=== PATIENT | male | born 1950 | race Caucasian/White ===

== ENCOUNTER 2019-11-10 17:10 | Emergency (ER) | payer OTHER, BC ==
--- NOTE | 2019-11-10 17:29 | PDOC ---
History of Present Illness - General Chief Complaint: Laceration Stated Complaint: LACERATION Time Seen by Provider: 11/10/19 17:17 History Source: Patient - History of Present Illness Timing/Duration: reports: just prior to arrival Location: reports: hands Past History - Past Medical History Allergies/Adverse Reactions: Allergies Allergy/AdvReac Type Severity Reaction Status Date / Time No Known Allergies Allergy Verified 11/10/19 17:12 Home Medications: Ambulatory Orders Desmopressin Acetate 1 tab PO ASDIR 11/10/19 Nebivolol [Bystolic -] 5 mg PO DAILY 11/10/19 Pantoprazole Sodium [Protonix -] 40 mg PO DAILY 11/10/19 Ramipril 5 mg PO DAILY 11/10/19 Semaglutide [Ozempic] 2 mg IJ MONTHLY 11/10/19 Simvastatin 10 mg PO HS 11/10/19 Warfarin Na [Coumadin] 4 mg PO DAILY 11/10/19 - Psycho Social/Smoking Cessation Hx Smoking History: Never smoked Review of Systems - Review of Systems Neurological: No: Numbness, Tingling *Physical Exam - Vital Signs Last Vital Signs Temp Pulse Resp BP Pulse Ox 97.8 F 60 18 154/78 98 11/10/19 17:14 11/10/19 17:14 11/10/19 17:14 11/10/19 17:14 11/10/19 17:14 - Physical Exam General Appearance: Yes: Appropriately Dressed. No: Apparent Distress HEENT: positive: Normal Voice Neck: positive: Supple Respiratory/Chest: negative: Respiratory Distress Integumentary: positive: Dry, Warm, Other (~1.5 cm lac to distal phalanx of volar L thumb, no gross tendon injury, active and passive ROM intact, sensation intact) Neurologic: positive: Fully Oriented, Alert, Normal Mood/Affect, Motor Strength 5/5 Procedures - Laceration/Wound Repair Left Finger Wound Length: to 2.5 cm Irrigated w/ Saline: Yes Betadine Prep: Yes Anesthesia: 1% Lidocaine Amount of Anesthetic (ccs): 6 Wound Repaired With: Sutures Suture Size/Type: 5:0, 4:0, nylon Number of Sutures: 21 (2, 4:0 nylon and 19, 5:0 nylon) Medical Decision Making - Medical Decision Making 11/10/19 17:18 69 yo male, history of unprovoked DVT/PE, on lifelong Coumadin presents with left thumb laceration after handling a table saw today. Denies any sensory changes. Tetanus up-to-date with the last 5 years see exam Finger lac No e/o complications at this time No significant bleeding (on coumadin) XR neg for fracture S/p suture repair Tetanus up-to-date Dc to return as needed for wound check in 2 days 11/10/19 18:21 Discharge - Discharge Information Problems reviewed: Yes Clinical Impression/Diagnosis: Finger laceration Qualifiers: Encounter type: initial encounter Finger: thumb Damage to nail status: without damage Foreign body presence: without foreign body Laterality: left Qualified Code(s): S61.012A - Laceration without foreign body of left thumb without damage to nail, initial encounter Condition: Good Disposition: HOME - Follow up/Referral - Patient Discharge Instructions Patient Printed Discharge Instructions: DI for Laceration Repair Additional Instructions: Keep dressing in place for at least 24 hours after which one can be opened to air. You can gently cleaned wound with mild soap and water after 24 hours to prevent crusting over the suture knots. You can also apply an antibiotic ointment twice a day until sutures are removed. Return for redness, discharge or fever Sutures are removed in 7 days Xray was negative for fracture - Post Discharge Activity
[2019-11-10 17:36] VITALS: BP 154/78; PULSE 60; TEMP 97.8; BMI 32.6
== END 2019-11-10 18:15 | disposition home or self-care (01) ==
LOC: JER 17:10
PROC: 0HQGXZZ Repair Left Hand Skin, External Approach (ICD-10-PCS; principal; 2019-11-10)
DX: S61.012A Laceration without foreign body of left thumb without damage to nail, initial encounter (principal); W29.8XXA Contact with other powered hand tools and household machinery, initial encounter; Y93.89 Activity, other specified; Y92.018 Other place in single-family (private) house as the place of occurrence of the external cause; Y99.8 Other external cause status; Z86.711 Personal history of pulmonary embolism; Z86.718 Personal history of other venous thrombosis and embolism; Z79.01 Long term (current) use of anticoagulants
CPT/HCPCS: 12001-25; 73140-TC-LT-FY; 99283-25

== ENCOUNTER 2022-04-25 23:27 | Observation (INO) | payer OTHER, BC ==
[2022-04-26] MEDS ORDERED: SODIUM CHLORIDE 0.9% 500 ML INFUS.BAG IV ONE
[2022-04-26] MEDS ORDERED: LIDOCAINE 5% TOPICAL PATCH TP ONE
[2022-04-26] MEDS ORDERED: LIDOCAINE 5% TOPICAL PATCH ONE (00:03)
[2022-04-26] MEDS ORDERED: morphine SULFATE 4 MG/ML VIAL ONE ×2 (00:03→01:17)
[2022-04-26 00:29] LABS: EOS % 3.5 % (0-4.5); HEMATOCRIT 49.7 % (35.4-49); HEMOGLOBIN 16.6 GM/dL (11.7-16.9); LYMPH % 35.3 % (8-40); MCHC 33.4 g/dl (32.0-35.9); MEAN CELL VOLUME 89.9 fl (80-96); MEAN PLT VOLUME 6.5 fl (7.5-11.1); MONO % 10.6 % (3.8-10.2); NEUT % 49.6 % (42.8-82.8); PLATELET COUNT 153 10^3/uL (134-434); RBC 5.52 M/mm3 (4.00-5.60); RDW 14.8 % (11.9-15.9)
[2022-04-26 00:40] LABS: PROTHROMBIN TIME (PATIENT) 34.9 SEC (9.7-13.0)
[2022-04-26 00:43] LABS: ACTIVATED PTT 45.5 SECONDS (25.2-36.5)
[2022-04-26 00:49] LABS: BLOOD UREA NITROGEN 33.1 mg/dL (7-18); CALCIUM 8.9 mg/dL (8.5-10.1)
[2022-04-26 00:53] LABS: CREATININE 1.6 mg/dL (0.55-1.3)
[2022-04-26 00:54] LABS: BILIRUBIN,TOTAL 0.4 mg/dL (0.2-1); TOT PROT 7.4 g/dl (6.4-8.2)
[2022-04-26] MEDS ORDERED: morphine CARPU-JECT 4 MG/1 ML DISP.SYRIN IVPUSH ONE ×2 (01:15)
[2022-04-26 02:58] LABS: PH,URINE 5.5 (5.0-8.0); URINE APPEARANCE CLEAR; URINE BILIRUBIN NEGATIVE (NEGATIVE); URINE COLOR YELLOW; URINE GLUCOSE (UA) NEGATIVE (NEGATIVE); URINE KETONE NEGATIVE (NEGATIVE); URINE LEUK ESTERASE NEGATIVE (NEGATIVE); URINE NITRITE NEGATIVE (NEGATIVE); URINE PROTEIN NEGATIVE (NEGATIVE); URINE UROBILINOGEN 0.2 mg/dL (0.2-1.0)
[2022-04-26] MEDS ORDERED: METHOCARBAMOL 500 MG TABLET PO ONE (04:39)
[2022-04-26] MEDS ORDERED: METHOCARBAMOL 500 MG TABLET ONE (05:17)
[2022-04-26] MEDS ORDERED: SODIUM CHLORIDE 1,000 ML IV STA (08:26)
[2022-04-26] MEDS ORDERED: SODIUM CHLORIDE 500 ML IV STA (08:39)
[2022-04-26] MEDS ORDERED: NEBIVOLOL 5 MG TABLET (FP) PO SCH (10:00)
[2022-04-26] MEDS: INSULIN SLIDING SCALE (NOVOLOG) 1 VIAL SQ SCH ×2 (11:21→17:19)
[2022-04-26 11:39] VITALS: BMI 35.3
[2022-04-26 15:54] VITALS: BP 128/80; PULSE 80; RESP 18; TEMP 97.7
[2022-04-26 17:13] LABS: CALCIUM 8.2 mg/dL (8.5-10.1)
[2022-04-26 17:14] LABS: BLOOD UREA NITROGEN 21.4 mg/dL (7-18)
[2022-04-26 17:18] LABS: ALBUMIN 3.6 g/dl (3.4-5.0); BILIRUBIN,TOTAL 0.4 mg/dL (0.2-1)
[2022-04-26 17:28] LABS: TOT PROT 6.6 g/dl (6.4-8.2)
[2022-04-26] MEDS ORDERED: WARFARIN NA 3 MG TABLET PO SCH (18:00)
[2022-04-26] MEDS ORDERED: WARFARIN NA 2 MG TABLET PO SCH (18:00)
[2022-04-26] MEDS ORDERED: LIDOCAINE PATCH REMOVAL MC SCH (22:00)
== END 2022-04-26 16:20 | disposition home or self-care (01) ==
LOC: JER 23:27 → INTOOBSV 04-26 05:28 → JERBED 04-26 05:28 → UNDOADMOB 04-26 05:28 → JERBED 04-26 08:29 → J8W 04-26 09:42
PROVIDERS: ADMIT Internal Medicine; ATTEND Internal Medicine
PROC: 3E033NZ Introduction of Analgesics, Hypnotics, Sedatives into Peripheral Vein, Percutaneous Approach (ICD-10-PCS; principal; 2022-04-26)
PROC: 3E0337Z Introduction of Electrolytic and Water Balance Substance into Peripheral Vein, Percutaneous Approach (ICD-10-PCS; 2022-04-26)
DX: N17.9 Acute kidney failure, unspecified (principal); M54.9 Dorsalgia, unspecified; E66.8 Other obesity; Z68.35 Body mass index [BMI] 35.0-35.9, adult
CPT/HCPCS: 36415; 74177-TC; 76775-TC; 80053; 81003; 82570; 82962; 84300; 85025; 85610; 85730; 87086; 93005; 93010; 96361; 96374; 96376; 99285-25; C9803-CS; G0378; Q9967; U0003; U0005